=== PATIENT | male | born 1975 | race Caucasian/White ===

== ENCOUNTER → 2016-11-23 | Outpatient (CLI) | payer OTHER ==
[~2016-11-23] MED LIST: /WARF5TA PO; ACET65TA OR; BACT800T PO; CIPR500T4 PO; COUM1TAB17 PO; DIET; DOCU10CA PO; DRIS50002 PO; FOLLOW UP; IBUP600T26 PO; K-TA10TA2 PO; NICO14DI3 TD; No Historical Meds; OMEP10CASR PO; OMEP20CA3 PO; PERC5TAB6 PO; PERC5TAB8 PO; PERC7.5T8 PO; PERCOCET PO; POTA595T8 PO; POTA75TA2 PO; PRIL20CA9 PO; TYLE325T5 PO; VICO5TAB OR; VITA100072 PO; XARE15TA PO; [UNRECOGNIZED DRUG - OTHER] PO; [UNRECOGNIZED DRUG - REMARK]; [UNRECOGNIZED DRUG - REMARK]
--- NOTE | 2016-11-23 14:57 | REP ---
Clinical: Chronic venous thrombosis . Technique: Barber scale and color Doppler evaluation using linear high frequency transducer. Findings: Ultrasound examination of the right and left lower extremity deep venous structures from the common femoral vein to the popliteal vein demonstrates nonocclusive thrombus involving the left common femoral vein and bilateral proximal to distal superficial femoral veins and popliteal veins. Similar findings noted on prior examinations dated 09/17/2015 and 05/15/2014 suggest chronic deep venous thrombosis. Impression: Bilateral chronic nonocclusive venous thrombosis. Signed by Ozzy Aguilar MD 11/23/2016 02:48 P
== END ==
LOC: M RAD 14:04
PROVIDERS: ATTEND Nurse Practitioner Family
DX: I87.2 Venous insufficiency (chronic) (peripheral) (principal)

== ENCOUNTER → 2017-08-21 | Outpatient (REF) | payer MEDICARE, MEDICAID ==
[~2017-08-21] MED LIST changes: +FURO40TA2 PO; +IBUP-1022 PO; -IBUP600T26 PO; +PERC5TAB12 PO; -PERC5TAB6 PO; +SPIR25TA2 PO
== END ==
LOC: M LAB REF 17:34
PROVIDERS: ATTEND Internal Medicine Medical Oncology
DX: C18.9 Malignant neoplasm of colon, unspecified (principal)

== ENCOUNTER 2018-07-23 17:06 | Inpatient (IN) | payer MEDICARE, MEDICAID ==
[2018-07-23 18:11] LABS: HEMATOCRIT 25.5 % (42.0-52.0); MEAN CORPUSCULAR HEMOGLOBIN 36.6 pg (27.0-33.0); MEAN CORPUSCULAR HGB CONC 35.3 g/dl (32.0-36.5); MEAN CORPUSCULAR VOLUME 103.7 fl (80.0-96.0); RED BLOOD COUNT 2.46 10^6/uL (4.30-6.10); RED CELL DISTRIBUTION WIDTH 12.8 % (11.5-14.5); WHITE BLOOD COUNT 5.1 10^3/uL (4.0-10.0)
[2018-07-23 18:20] LABS: ADD MANUAL DIFFER YES; DIFF SLIDE NUMBER 379; PLATELET COUNT, AUTOMATED 25 10^3/uL (150-450); POS COUNT POS FLAG; POSITIVE MORPH POS FLAG
[2018-07-23] MEDS: NS 2,730 ML in APPROPRIATE DILUENT 1 EA IV (18:20)
[2018-07-23 18:22] LABS: ALBUMIN 2.4 GM/DL (3.2-5.2); ALBUMIN/GLOBULIN RATIO 0.49 (1.00-1.93); ALKALINE PHOSPHATASE 90 U/L (45-117); ALT/SGPT 64 U/L (12-78); ANION GAP 12 MEQ/L (8-16); AST/SGOT 70 U/L (7-37); BILIRUBIN,DIRECT 0.6 MG/DL (0.0-0.2); BILIRUBIN,TOTAL 1.1 MG/DL (0.2-1.0); BLOOD UREA NITROGEN 29 MG/DL (7-18); CALCIUM LEVEL 9.1 MG/DL (8.5-10.1); CARBON DIOXIDE LEVEL 19 MEQ/L (21-32); CHLORIDE LEVEL 93 MEQ/L (98-107); CREATININE FOR GFR 2.58 MG/DL (0.70-1.30); GLOMERULAR FILTRATION RATE 28.9 (>60); GLUCOSE, FASTING 102 MG/DL (70-100); IMMATURE PLATELET FRACTION % 5.2 % (0.0-10.9); SODIUM LEVEL 124 MEQ/L (136-145); TOTAL PROTEIN 7.3 GM/DL (6.4-8.2)
[2018-07-23 18:29] LABS: LACTIC ACID SEPSIS PROTOCOL 2.7 MMOL/L (0.4-2.0)
[2018-07-23] MEDS: MORPHINE 4 MG/ML 1ML VIAL/SYRINGE (J2270) IV (18:29)
[2018-07-23 18:30] LABS: CPK CREATINE PHOSPHOKINASE 165 U/L (39-308); LIPASE 74 U/L (73-393); MB/CK RELATIVE INDEX 0.91 (< OR =4); TROPONIN I < 0.02 NG/ML (< 0.10)
[2018-07-23] MEDS: ONDANSETRON 4MG/2ML VIAL (J2405) IV (18:30)
[2018-07-23 18:49] LABS: KETONE, URINE AUTO RFX NEGATIVE (NEGATIVE); MUCUS, URINE RFX SMALL (NEGATIVE); NITRITE, URINE AUTO RFX NEGATIVE (NEGATIVE); RBC, URINE AUTO RFX 30 /HPF (0-3); SPECIFIC GRAVITY UR AUTO RFX 1.009 (1.002-1.035); SQUAM EPITHELIAL CELL UR AURFX 0 /HPF (0-6)
[2018-07-23 18:52] LABS: INR 1.41; PROTHROMBIN TIME 17.5 SECONDS (12.1-14.4)
[2018-07-23 18:53] LABS: PARTIAL THROMBOPLASTIN TIME 33.2 SECONDS (25.4-37.6)
[2018-07-23 18:54] LABS: BANDS 10 % (< 11); LYMPHOCYTES 19 % (16-52); MONOCYTES 7 % (0-8); NEUTROPHILS 64 % (35-75)
[2018-07-23 18:55] LABS: PLATELET ESTIMATE MARKED DECREASE (NORMAL)
[2018-07-23 18:56] LABS: TOXIC VACUOLATION 1+
[2018-07-23 19:14] LABS: LEUKOCYTE ESTERASE UR AUTO RFX 3+ (NEGATIVE); WBC, URINE AUTO RFX TNTC /HPF (0-3)
[2018-07-23] MEDS: cefTRIAXone SOD 2 GM in D5W MINI-BAG PLUS 50 ML IV (19:53)
[2018-07-23] MEDS ORDERED: ONDANSETRON 4 MG TAB (S0181) PO (21:00)
[2018-07-23] MEDS: SODIUM CHLORIDE 0.9% 1000ML IV (21:00)
[2018-07-23] MEDS: VANCOMYCIN HCL 1,000 MG, VIAL MATE ADAPTER 1 EACH in D5W 250 ML IV (22:29)
[2018-07-23] MEDS: NS 1,000 ML IV (22:31)
[2018-07-23 22:39] LABS: PLTBLUE- EDTA FREE CALC 23 K/mm3 (172-450)
[2018-07-23 22:55] LABS: PLTBLUE- EDTA FREE MACHINE 21 10^3/uL (172-450)
[2018-07-24] MEDS: VANCOMYCIN HCL 1,000 MG, VIAL MATE ADAPTER 1 EACH in NS 250 ML IV
[2018-07-24] MEDS: NS 1,000 ML IV ×2 (05:17→16:06)
[2018-07-24] MEDS: MORPHINE 4 MG/ML 1ML VIAL/SYRINGE (J2270) IV (05:46)
[2018-07-24] MEDS: PIPERACILLIN/TAZOBACTAM SOD 2.25 GM in D5W MINI-BAG PLUS 50 ML IV ×2 (06:00→17:38)
[2018-07-24 07:27] LABS: HEMATOCRIT 20.8 % (42.0-52.0); HEMOGLOBIN 7.3 g/dl (13.5-17.5); MEAN CORPUSCULAR HEMOGLOBIN 36.7 pg (27.0-33.0); MEAN CORPUSCULAR HGB CONC 35.1 g/dl (32.0-36.5); MEAN CORPUSCULAR VOLUME 104.5 fl (80.0-96.0); RED BLOOD COUNT 1.99 10^6/uL (4.30-6.10)
[2018-07-24 07:50] LABS: ADD MANUAL DIFFER YES; DIFF SLIDE NUMBER 91; PLATELET COUNT, AUTOMATED 19 10^3/uL (150-450); POS COUNT POS FLAG; POSITIVE MORPH POS FLAG
[2018-07-24 07:54] LABS: ANION GAP 11 MEQ/L (8-16); BLOOD UREA NITROGEN 31 MG/DL (7-18); CALCIUM LEVEL 7.7 MG/DL (8.5-10.1); CARBON DIOXIDE LEVEL 18 MEQ/L (21-32); CHLORIDE LEVEL 101 MEQ/L (98-107); CREATININE FOR GFR 2.46 MG/DL (0.70-1.30); GLOMERULAR FILTRATION RATE 30.6 (>60); GLUCOSE, FASTING 115 MG/DL (70-100); POTASSIUM SERUM 3.8 MEQ/L (3.5-5.1); SODIUM LEVEL 130 MEQ/L (136-145)
[2018-07-24 08:02] LABS: ANISOCYTOSIS 1+; BASOPHILS 1 % (0-4); LYMPHOCYTES 25 % (16-52); MONOCYTES 2 % (0-8); NEUTROPHILS 72 % (35-75); PLATELET ESTIMATE MARKED DECREASE (NORMAL)
[2018-07-24] MEDS ORDERED: SPIRONOLACTONE 12.5MG PER 1/2 TABLET PO (09:00)
[2018-07-24] MEDS: OMEPRAZOLE 20 MG CAP PO (09:17)
[2018-07-24] MEDS: ACETAMINOPHEN TAB 650MG DOSE (2X325MG) PO (09:17)
[2018-07-24] MEDS: NICOTINE 21MG/24HR 1 EA TRANSDERMAL TD (09:17)
[2018-07-24] MEDS ORDERED: PERCOCET 5MG/325MG TAB PO (10:45)
[2018-07-24] MEDS: PERCOCET 5MG/325MG TAB PO (10:52)
[2018-07-24 10:57] LABS: REASON FOR REVIEW WBC/LEUKEMIA/BLAST; SLIDE REVIEW Report; SOURCE PERIPHERAL SMEAR
[2018-07-24 13:37] LABS: RETIC HEMOGLOBIN EQUIVALENT 38.2 pg (24-36); RETICULOCYTE # 8.9 10^9/L (17-77); RETICULOCYTE % 0.4 % (0.5-1.5)
[2018-07-24 13:39] LABS: EOS % 0.5 % (0.0-3.0); HEMATOCRIT 21.8 % (42.0-52.0); HEMOGLOBIN 7.7 g/dl (13.5-17.5); LYMPH # 0.5 10^3/uL (1.5-4.5); LYMPH % 14.4 % (24.0-44.0); MEAN CORPUSCULAR HEMOGLOBIN 37.2 pg (27.0-33.0); MEAN CORPUSCULAR HGB CONC 35.3 g/dl (32.0-36.5); MEAN CORPUSCULAR VOLUME 105.3 fl (80.0-96.0); MONO # 0.4 10^3/uL (0.0-0.8); MONO % 9.4 % (0.0-5.0); NEUTROPHILS # 2.6 10^3/uL (1.8-7.7); NEUTROPHILS % 68.7 % (36.0-66.0); RED BLOOD COUNT 2.07 10^6/uL (4.30-6.10); RED CELL DISTRIBUTION WIDTH 13.1 % (11.5-14.5); WHITE BLOOD COUNT 3.7 10^3/uL (4.0-10.0)
[2018-07-24 13:49] LABS: PLATELET COUNT, AUTOMATED 17 10^3/uL (150-450)
[2018-07-24 13:50] LABS: POS COUNT POS FLAG; POSITIVE MORPH POS FLAG
[2018-07-24] MEDS: NS 500 ML IV (15:45)
[2018-07-24 16:18] LABS: IRON (FE) 42 UG/DL (65-175); PERCENT SATURATION 33.3 % (19.7-50.0); TOTAL IRON BINDING CAPACITY 126 UG/DL (250-450)
[2018-07-24 16:19] LABS: FERRITIN 1875 NG/ML (26-388)
[2018-07-24 16:21] LABS: LDH LACTATE DEHYDROGENASE 244 U/L (87-241)
[2018-07-24 16:22] LABS: FIBRINOGEN 652 MG/DL (221-452)
[2018-07-24 17:06] LABS: BLOOD UREA NITROGEN 34 MG/DL (7-18); CARBON DIOXIDE LEVEL 17 MEQ/L (21-32); CHLORIDE LEVEL 106 MEQ/L (98-107); CREATININE FOR GFR 2.63 MG/DL (0.70-1.30); GLOMERULAR FILTRATION RATE 28.3 (>60); GLUCOSE, FASTING 96 MG/DL (70-100); SODIUM LEVEL 136 MEQ/L (136-145)
[2018-07-24 17:07] LABS: ANION GAP 13 MEQ/L (8-16); CALCIUM LEVEL 7.8 MG/DL (8.5-10.1)
[2018-07-24 17:07] LABS: LDH LACTATE DEHYDROGENASE 246 U/L (87-241)
[2018-07-25 08:07] LABS: HAPTOGLOBIN 432 mg/dL (34-200)
[2018-07-25] MEDS ORDERED: INFLUENZA QUADRIVALENT PF VACCINE 0.5ML SYRINGE (90686) IM (09:00)
[2018-07-25 09:29] LABS: FOLATE 3.7 NG/ML (>5.4)
[2018-07-27 00:08] LABS: HOMOCYST(E)INE SERUM 20.6 umol/L (0.0-15.0)
== END 2018-07-24 18:06 | disposition short-term general hospital (02) | DRG 871 ==
LOC: M ICU 07-24 15:55 → M ED 17:06 → M ED INP 21:25
DX: A41.9 Sepsis, unspecified organism (principal); M31.1 Thrombotic microangiopathy; N17.9 Acute kidney failure, unspecified; N13.30 Unspecified hydronephrosis; N39.0 Urinary tract infection, site not specified; D68.2 Hereditary deficiency of other clotting factors; I12.9 Hypertensive chronic kidney disease with stage 1 through stage 4 chronic kidney disease, or unspecified chronic kidney disease; D69.6 Thrombocytopenia, unspecified; R65.20 Severe sepsis without septic shock; N18.3 Chronic kidney disease, stage 3 (moderate); Z86.718 Personal history of other venous thrombosis and embolism; L02.224 Furuncle of groin; Z79.01 Long term (current) use of anticoagulants; Z85.048 Personal history of other malignant neoplasm of rectum, rectosigmoid junction, and anus; H54.62 Unqualified visual loss, left eye, normal vision right eye; Z93.3 Colostomy status; Z87.442 Personal history of urinary calculi; Z79.899 Other long term (current) drug therapy; F17.210 Nicotine dependence, cigarettes, uncomplicated

== ENCOUNTER 2018-08-21 11:37 | Outpatient (CLI) | payer MEDICARE, MEDICAID ==
[2018-08-21] MEDS: ACETAMINOPHEN TAB 650MG DOSE (2X325MG) PO (13:09)
[2018-08-21] MEDS: diphenhydrAMINE 25 MG CAP PO (13:09)
[2018-08-21] MEDS ORDERED: ONDANSETRON 4 MG TAB (S0181) PO (13:15)
== END 2018-08-21 19:36 | disposition home or self-care (01) ==
LOC: M OPCLI4PV 11:37 → M MSPAV 12:05 → M OPCLI4PV 19:36
DX: D69.6 Thrombocytopenia, unspecified (principal)
CPT/HCPCS: 36430

== ENCOUNTER 2018-08-28 17:02 | Inpatient (IN) | payer MEDICARE, MEDICAID ==
[2018-08-28] MEDS: ONDANSETRON 4MG/2ML VIAL (J2405) IV (18:34)
[2018-08-28] MEDS: MORPHINE 2 MG/ML 1ML SYRINGE (J2270) IV ×2 (18:34→22:00)
[2018-08-28 18:52] LABS: HEMATOCRIT 25.6 % (42.0-52.0); HEMOGLOBIN 8.6 g/dl (13.5-17.5); MEAN CORPUSCULAR HEMOGLOBIN 34.1 pg (27.0-33.0); MEAN CORPUSCULAR HGB CONC 33.6 g/dl (32.0-36.5); MEAN CORPUSCULAR VOLUME 101.6 fl (80.0-96.0); RED BLOOD COUNT 2.52 10^6/uL (4.30-6.10); RED CELL DISTRIBUTION WIDTH 17.8 % (11.5-14.5); WHITE BLOOD COUNT 2.3 10^3/uL (4.0-10.0)
[2018-08-28 18:55] LABS: ADD MANUAL DIFFER YES; DIFF SLIDE NUMBER 377; PLATELET COUNT, AUTOMATED 13 10^3/uL (150-450); POS COUNT POS FLAG; POSITIVE DIFF POS FLAG; POSITIVE MORPH POS FLAG
[2018-08-28 18:57] LABS: IMMATURE PLATELET FRACTION % 11.3 % (0.0-10.9)
[2018-08-28 19:02] LABS: LACTIC ACID SEPSIS PROTOCOL 1.3 MMOL/L (0.4-2.0)
[2018-08-28 19:10] LABS: ALBUMIN 2.8 GM/DL (3.2-5.2); ALBUMIN/GLOBULIN RATIO 0.65 (1.00-1.93); ALKALINE PHOSPHATASE 131 U/L (45-117); ALT/SGPT 15 U/L (12-78); AMYLASE 38 U/L (25-115); ANION GAP 10 MEQ/L (8-16); AST/SGOT 9 U/L (7-37); BILIRUBIN,DIRECT 0.2 MG/DL (0.0-0.2); BILIRUBIN,TOTAL 0.4 MG/DL (0.2-1.0); BLOOD UREA NITROGEN 19 MG/DL (7-18); CALCIUM LEVEL 8.4 MG/DL (8.5-10.1); CARBON DIOXIDE LEVEL 22 MEQ/L (21-32); CHLORIDE LEVEL 108 MEQ/L (98-107); CPK CREATINE PHOSPHOKINASE 41 U/L (39-308); CREATININE FOR GFR 1.83 MG/DL (0.70-1.30); GLUCOSE, FASTING 87 MG/DL (70-100); LIPASE 63 U/L (73-393); MB/CK RELATIVE INDEX 2.68 (< OR =4); POTASSIUM SERUM 3.4 MEQ/L (3.5-5.1); SODIUM LEVEL 140 MEQ/L (136-145); TOTAL PROTEIN 7.1 GM/DL (6.4-8.2); TROPONIN I < 0.02 NG/ML (< 0.10)
[2018-08-28 19:23] LABS: ATYPICAL LYMPH 24 % (0-5); BANDS 8 % (< 11); EOSINOPHILS 1 % (0-5); LYMPHOCYTES 34 % (16-52); METAMYELOCYTES 3 % (0-0); MONOCYTES 15 % (0-8); NEUTROPHILS 15 % (35-75); PLATELET ESTIMATE MARKED DECREASE (NORMAL)
[2018-08-28 19:26] LABS: SMUDGE CELLS 1+
[2018-08-28 19:33] LABS: KETONE, URINE AUTO RFX NEGATIVE (NEGATIVE); LEUKOCYTE ESTERASE UR AUTO RFX NEGATIVE (NEGATIVE); NITRITE, URINE AUTO RFX NEGATIVE (NEGATIVE); RBC, URINE AUTO RFX 7 /HPF (0-3); SPECIFIC GRAVITY UR AUTO RFX 1.012 (1.002-1.035); SQUAM EPITHELIAL CELL UR AURFX 0 /HPF (0-6); WBC, URINE AUTO RFX 3 /HPF (0-3)
[2018-08-28] MEDS: cefTAZidime 1 GM in D5W MINI-BAG PLUS 50 ML IV (20:00)
[2018-08-28 20:24] LABS: IMMEDIATE SPIN CROSSMATCH 1
[2018-08-28 20:33] LABS: INR 0.99; PROTHROMBIN TIME 13.2 SECONDS (12.1-14.4)
[2018-08-28 20:34] LABS: PARTIAL THROMBOPLASTIN TIME 33.2 SECONDS (25.4-37.6)
[2018-08-28] MEDS: POTASSIUM CHLORIDE 10 MEQ SR TABLET PO (21:45)
[2018-08-28 21:55] LABS: FIBRINOGEN 517 MG/DL (221-452)
[2018-08-28 21:58] LABS: C REACTIVE PROTEIN QUANTITATIV 8.99 MG/DL (0.00-0.30); LDH LACTATE DEHYDROGENASE 207 U/L (87-241); MAGNESIUM LEVEL 1.3 MG/DL (1.8-2.4)
[2018-08-28 21:59] LABS: REASON FOR REVIEW WBC/LEUKEMIA/BLAST; SLIDE REVIEW Report; SOURCE PERIPHERAL SMEAR
[2018-08-28 22:22] LABS: ERYTHROCYTE SEDIMENTATION RATE > 140 mm/hr (0-15)
[2018-08-28 22:55] LABS: CPK CREATINE PHOSPHOKINASE 30 U/L (39-308); MB/CK RELATIVE INDEX 3.67 (< OR =4); TROPONIN I < 0.02 NG/ML (< 0.10)
[2018-08-29] MEDS: NICOTINE 21MG/24HR 1 EA TRANSDERMAL TD ×2 (00:52→20:19)
[2018-08-29] MEDS: ACETAMINOPHEN TAB 650MG DOSE (2X325MG) PO (00:52)
[2018-08-29] MEDS: MAG SULF 1GM/100ML (MAG RUN) 1 GM in APPROPRIATE DILUENT 1 EA IV ×2 (00:53→02:02)
[2018-08-29] MEDS: MORPHINE 4 MG/ML 1ML VIAL/SYRINGE (J2270) IV ×8 (00:53→22:43)
[2018-08-29] MEDS ORDERED: AMPICILLIN SOD/SULBACTAM SOD 1.5 GM in D5W MINI-BAG PLUS 50 ML IV (02:00)
[2018-08-29] MEDS: AMPICILLIN SOD/SULBACTAM SOD 1.5 GM in D5W MINI-BAG PLUS 50 ML IV ×2 (03:00→08:00)
[2018-08-29] MEDS: PERCOCET 5MG/325MG TAB PO ×4 (04:45→18:26)
[2018-08-29 05:09] LABS: HEMATOCRIT 20.9 % (42.0-52.0); HEMOGLOBIN 7.2 g/dl (13.5-17.5); MEAN CORPUSCULAR HEMOGLOBIN 33.6 pg (27.0-33.0); MEAN CORPUSCULAR HGB CONC 34.4 g/dl (32.0-36.5); MEAN CORPUSCULAR VOLUME 97.7 fl (80.0-96.0); RED BLOOD COUNT 2.14 10^6/uL (4.30-6.10); RED CELL DISTRIBUTION WIDTH 17.1 % (11.5-14.5)
[2018-08-29 05:10] LABS: PLATELET COUNT, AUTOMATED 25 10^3/uL (150-450); WHITE BLOOD COUNT 1.3 10^3/uL (4.0-10.0)
[2018-08-29 05:11] LABS: ADD MANUAL DIFFER YES; DIFF SLIDE NUMBER 79; POS COUNT POS FLAG; POSITIVE DIFF POS FLAG; POSITIVE MORPH POS FLAG
[2018-08-29 05:41] LABS: ALBUMIN 2.4 GM/DL (3.2-5.2); ALBUMIN/GLOBULIN RATIO 0.65 (1.00-1.93); ALKALINE PHOSPHATASE 110 U/L (45-117); ALT/SGPT 10 U/L (12-78); ANION GAP 8 MEQ/L (8-16); AST/SGOT 5 U/L (7-37); BILIRUBIN,TOTAL 0.5 MG/DL (0.2-1.0); BLOOD UREA NITROGEN 16 MG/DL (7-18); CALCIUM LEVEL 8.2 MG/DL (8.5-10.1); CARBON DIOXIDE LEVEL 22 MEQ/L (21-32); CHLORIDE LEVEL 109 MEQ/L (98-107); CK-MB VALUE MASS < 1.0 NG/ML (<3.6); CPK CREATINE PHOSPHOKINASE 26 U/L (39-308); CREATININE FOR GFR 1.76 MG/DL (0.70-1.30); GLUCOSE, FASTING 105 MG/DL (70-100); MAGNESIUM LEVEL 1.8 MG/DL (1.8-2.4); MB/CK RELATIVE INDEX 3.85 (< OR =4); POTASSIUM SERUM 3.7 MEQ/L (3.5-5.1); SODIUM LEVEL 139 MEQ/L (136-145); TOTAL PROTEIN 6.1 GM/DL (6.4-8.2); TROPONIN I < 0.02 NG/ML (< 0.10)
[2018-08-29 06:18] LABS: ATYPICAL LYMPH 1 % (0-5); LYMPHOCYTES 73 % (16-52); METAMYELOCYTES 3 % (0-0); MONOCYTES 4 % (0-8); MYELOCYTES 2 % (0-0); NEUTROPHILS 17 % (35-75)
[2018-08-29 06:22] LABS: ANISOCYTOSIS 1+; PLATELET ESTIMATE MARKED DECREASE (NORMAL)
[2018-08-29 06:24] LABS: TEAR DROP CELLS 1+
[2018-08-29] MEDS ORDERED: PANTOPRAZOLE 40MG TAB (PROTONIX) PO (09:00)
[2018-08-29] MEDS: OMEPRAZOLE 20 MG CAP PO (09:00)
[2018-08-29] MEDS: SPIRONOLACTONE 12.5MG PER 1/2 TABLET PO (09:00)
[2018-08-29] MEDS: SENOKOT S TAB PO ×2 (09:00→20:19)
[2018-08-29] MEDS: VANCOMYCIN HCL 1,000 MG, VIAL MATE ADAPTER 1 EACH in D5W 250 ML IV ×2 (12:04→18:26)
[2018-08-29] MEDS: CEFEPIME HCL 2 GM in D5W MINI-BAG PLUS 50 ML IV (13:28)
[2018-08-29] MEDS: ONDANSETRON 4MG/2ML VIAL (J2405) IV (13:55)
[2018-08-29] MEDS: TAMSULOSIN 0.4 MG CAP PO (13:55)
[2018-08-29 14:27] LABS: IMMEDIATE SPIN CROSSMATCH 1 2
[2018-08-29 17:51] LABS: HEMATOCRIT 29.1 % (42.0-52.0); HEMOGLOBIN 9.9 g/dl (13.5-17.5); MEAN CORPUSCULAR VOLUME 94.2 fl (80.0-96.0); RED BLOOD COUNT 3.09 10^6/uL (4.30-6.10); RED CELL DISTRIBUTION WIDTH 17.6 % (11.5-14.5); WHITE BLOOD COUNT 1.8 10^3/uL (4.0-10.0)
[2018-08-29 17:54] LABS: PLATELET COUNT, AUTOMATED 23 10^3/uL (150-450); POS COUNT POS FLAG
[2018-08-29] MEDS: diphenhydrAMINE 25 MG CAP PO (18:25)
[2018-08-29] MEDS: FILGRASTIM 300 MCG/0.5 ML SYRINGE (J1442 PER 1MCG) SC (18:26)
[2018-08-30] MEDS: VANCOMYCIN HCL 1,000 MG, VIAL MATE ADAPTER 1 EACH in D5W 250 ML IV (00:32)
[2018-08-30] MEDS: PERCOCET 5MG/325MG TAB PO ×6 (00:33→23:07)
[2018-08-30] MEDS: MORPHINE 4 MG/ML 1ML VIAL/SYRINGE (J2270) IV ×7 (01:15→20:44)
[2018-08-30] MEDS: CEFEPIME HCL 2 GM in D5W MINI-BAG PLUS 50 ML IV ×2 (02:32→14:51)
[2018-08-30 05:29] LABS: HEMATOCRIT 28.5 % (42.0-52.0); HEMOGLOBIN 9.7 g/dl (13.5-17.5); MEAN CORPUSCULAR HEMOGLOBIN 32.1 pg (27.0-33.0); MEAN CORPUSCULAR VOLUME 94.4 fl (80.0-96.0); RED BLOOD COUNT 3.02 10^6/uL (4.30-6.10); WHITE BLOOD COUNT 2.7 10^3/uL (4.0-10.0)
[2018-08-30 05:32] LABS: ADD MANUAL DIFFER YES; PLATELET COUNT, AUTOMATED 18 10^3/uL (150-450); POS COUNT POS FLAG; POSITIVE DIFF POS FLAG; POSITIVE MORPH POS FLAG
[2018-08-30 05:33] LABS: DIFF SLIDE NUMBER 43
[2018-08-30 05:50] LABS: ATYPICAL LYMPH 3 % (0-5); BANDS 5 % (< 11); LYMPHOCYTES 70 % (16-52); METAMYELOCYTES 3 % (0-0); MONOCYTES 1 % (0-8); MYELOCYTES 2 % (0-0); NEUTROPHILS 16 % (35-75); TEAR DROP CELLS 1+
[2018-08-30 05:51] LABS: ANISOCYTOSIS 2+; PLATELET ESTIMATE MARKED DECREASE (NORMAL)
[2018-08-30 05:57] LABS: ALBUMIN 2.1 GM/DL (3.2-5.2); ALBUMIN/GLOBULIN RATIO 0.49 (1.00-1.93); ALKALINE PHOSPHATASE 108 U/L (45-117); ALT/SGPT 10 U/L (12-78); ANION GAP 8 MEQ/L (8-16); AST/SGOT 6 U/L (7-37); BILIRUBIN,TOTAL 0.5 MG/DL (0.2-1.0); BLOOD UREA NITROGEN 16 MG/DL (7-18); CALCIUM LEVEL 8.2 MG/DL (8.5-10.1); CARBON DIOXIDE LEVEL 23 MEQ/L (21-32); CHLORIDE LEVEL 106 MEQ/L (98-107); CREATININE FOR GFR 1.67 MG/DL (0.70-1.30); GLOMERULAR FILTRATION RATE 47.8 (>60); GLUCOSE, FASTING 129 MG/DL (70-100); MAGNESIUM LEVEL 1.6 MG/DL (1.8-2.4); POTASSIUM SERUM 3.7 MEQ/L (3.5-5.1); SODIUM LEVEL 137 MEQ/L (136-145); TOTAL PROTEIN 6.4 GM/DL (6.4-8.2)
[2018-08-30] MEDS: MAG SULF 1GM/100ML (MAG RUN) 1 GM in APPROPRIATE DILUENT 1 EA IV (07:35)
[2018-08-30 08:06] LABS: HAPTOGLOBIN 259 mg/dL (34-200)
[2018-08-30 09:42] LABS: IMMEDIATE SPIN CROSSMATCH 1
[2018-08-30] MEDS: SENOKOT S TAB PO ×2 (09:48→20:38)
[2018-08-30] MEDS: TAMSULOSIN 0.4 MG CAP PO (09:48)
[2018-08-30] MEDS: OMEPRAZOLE 20 MG CAP PO (09:48)
[2018-08-30] MEDS: SPIRONOLACTONE 12.5MG PER 1/2 TABLET PO (09:48)
[2018-08-30] MEDS: FILGRASTIM 300 MCG/0.5 ML SYRINGE (J1442 PER 1MCG) SC (14:13)
[2018-08-30] MEDS: PIPERACILLIN/TAZOBACTAM SOD 3.375 GM in D5W MINI-BAG PLUS 50 ML IV ×2 (17:45→23:08)
[2018-08-30] MEDS: NICOTINE 21MG/24HR 1 EA TRANSDERMAL TD (20:38)
[2018-08-30] MEDS: VANCOMYCIN HCL 750 MG, VIAL MATE ADAPTER 1 EACH in D5W 250 ML IV (20:38)
[2018-08-31] MEDS: MORPHINE 4 MG/ML 1ML VIAL/SYRINGE (J2270) IV ×3 (01:57→17:13)
[2018-08-31] MEDS: PERCOCET 5MG/325MG TAB PO ×5 (05:27→23:54)
[2018-08-31] MEDS: PIPERACILLIN/TAZOBACTAM SOD 3.375 GM in D5W MINI-BAG PLUS 50 ML IV ×4 (05:27→22:44)
[2018-08-31 06:13] LABS: HEMATOCRIT 27.6 % (42.0-52.0); HEMOGLOBIN 9.3 g/dl (13.5-17.5); MEAN CORPUSCULAR HEMOGLOBIN 31.5 pg (27.0-33.0); MEAN CORPUSCULAR HGB CONC 33.7 g/dl (32.0-36.5); MEAN CORPUSCULAR VOLUME 93.6 fl (80.0-96.0); RED BLOOD COUNT 2.95 10^6/uL (4.30-6.10); RED CELL DISTRIBUTION WIDTH 18.1 % (11.5-14.5); WHITE BLOOD COUNT 3.5 10^3/uL (4.0-10.0)
[2018-08-31 06:15] LABS: PLATELET COUNT, AUTOMATED 26 10^3/uL (150-450); POS COUNT POS FLAG; POSITIVE MORPH POS FLAG
[2018-08-31 06:16] LABS: ADD MANUAL DIFFER YES; DIFF SLIDE NUMBER 37
[2018-08-31 06:37] LABS: ALBUMIN 2.1 GM/DL (3.2-5.2); ALBUMIN/GLOBULIN RATIO 0.46 (1.00-1.93); ALKALINE PHOSPHATASE 118 U/L (45-117); ALT/SGPT 10 U/L (12-78); ANION GAP 7 MEQ/L (8-16); AST/SGOT 8 U/L (7-37); BILIRUBIN,TOTAL 0.4 MG/DL (0.2-1.0); BLOOD UREA NITROGEN 20 MG/DL (7-18); CALCIUM LEVEL 8.7 MG/DL (8.5-10.1); CARBON DIOXIDE LEVEL 26 MEQ/L (21-32); CHLORIDE LEVEL 104 MEQ/L (98-107); CREATININE FOR GFR 1.73 MG/DL (0.70-1.30); GLOMERULAR FILTRATION RATE 45.9 (>60); GLUCOSE, FASTING 100 MG/DL (70-100); MAGNESIUM LEVEL 1.9 MG/DL (1.8-2.4); POTASSIUM SERUM 3.8 MEQ/L (3.5-5.1); SODIUM LEVEL 137 MEQ/L (136-145); TOTAL PROTEIN 6.7 GM/DL (6.4-8.2)
[2018-08-31] MEDS: ONDANSETRON 4MG/2ML VIAL (J2405) IV (06:38)
[2018-08-31 06:48] LABS: ATYPICAL LYMPH 2 % (0-5); BANDS 2 % (< 11); BASOPHILS 2 % (0-4); EOSINOPHILS 5 % (0-5); LYMPHOCYTES 57 % (16-52); METAMYELOCYTES 3 % (0-0); MONOCYTES 3 % (0-8); MYELOCYTES 2 % (0-0); NEUTROPHILS 24 % (35-75)
[2018-08-31 06:52] LABS: ANISOCYTOSIS 2+; PLATELET ESTIMATE MARKED DECREASE (NORMAL)
[2018-08-31] MEDS: OMEPRAZOLE 20 MG CAP PO (10:26)
[2018-08-31] MEDS: SENOKOT S TAB PO ×2 (10:27→20:12)
[2018-08-31] MEDS: TAMSULOSIN 0.4 MG CAP PO (10:41)
[2018-08-31] MEDS: SPIRONOLACTONE 12.5MG PER 1/2 TABLET PO (10:41)
[2018-08-31] MEDS: FILGRASTIM 300 MCG/0.5 ML SYRINGE (J1442 PER 1MCG) SC (11:17)
[2018-08-31] MEDS: NICOTINE 21MG/24HR 1 EA TRANSDERMAL TD (20:12)
[2018-09-01] MEDS: PIPERACILLIN/TAZOBACTAM SOD 3.375 GM in D5W MINI-BAG PLUS 50 ML IV ×3 (05:13→17:00)
[2018-09-01] MEDS: PERCOCET 5MG/325MG TAB PO ×4 (05:13→17:33)
[2018-09-01 06:18] LABS: HEMATOCRIT 28.1 % (42.0-52.0); HEMOGLOBIN 9.4 g/dl (13.5-17.5); MEAN CORPUSCULAR HEMOGLOBIN 31.9 pg (27.0-33.0); MEAN CORPUSCULAR HGB CONC 33.5 g/dl (32.0-36.5); MEAN CORPUSCULAR VOLUME 95.3 fl (80.0-96.0); RED BLOOD COUNT 2.95 10^6/uL (4.30-6.10); RED CELL DISTRIBUTION WIDTH 17.7 % (11.5-14.5); WHITE BLOOD COUNT 3.4 10^3/uL (4.0-10.0)
[2018-09-01 06:37] LABS: ALBUMIN 2.2 GM/DL (3.2-5.2); ALBUMIN/GLOBULIN RATIO 0.47 (1.00-1.93); ALKALINE PHOSPHATASE 159 U/L (45-117); ALT/SGPT 10 U/L (12-78); ANION GAP 7 MEQ/L (8-16); AST/SGOT 7 U/L (7-37); BILIRUBIN,TOTAL 0.4 MG/DL (0.2-1.0); BLOOD UREA NITROGEN 21 MG/DL (7-18); CALCIUM LEVEL 8.4 MG/DL (8.5-10.1); CARBON DIOXIDE LEVEL 26 MEQ/L (21-32); CHLORIDE LEVEL 101 MEQ/L (98-107); CREATININE FOR GFR 1.97 MG/DL (0.70-1.30); GLOMERULAR FILTRATION RATE 39.5 (>60); GLUCOSE, FASTING 127 MG/DL (70-100); POTASSIUM SERUM 3.7 MEQ/L (3.5-5.1); SODIUM LEVEL 134 MEQ/L (136-145); TOTAL PROTEIN 6.9 GM/DL (6.4-8.2)
[2018-09-01 06:49] LABS: PLATELET COUNT, AUTOMATED 18 10^3/uL (150-450)
[2018-09-01 06:50] LABS: ADD MANUAL DIFFER YES; DIFF SLIDE NUMBER 16; POS COUNT POS FLAG; POSITIVE DIFF POS FLAG; POSITIVE MORPH POS FLAG
[2018-09-01 07:06] LABS: ATYPICAL LYMPH 19 % (0-5); BANDS 7 % (< 11); BASOPHILS 2 % (0-4); BLAST CELLS 1 % (0-0); EOSINOPHILS 1 % (0-5); LYMPHOCYTES 32 % (16-52); METAMYELOCYTES 3 % (0-0); MONOCYTES 7 % (0-8); MYELOCYTES 6 % (0-0); NEUTROPHILS 22 % (35-75); PLATELET ESTIMATE MARKED DECREASE (NORMAL)
[2018-09-01 07:07] LABS: ANISOCYTOSIS 1+; POIKILOCYTOSIS 1+
[2018-09-01] MEDS: SENOKOT S TAB PO (09:00)
[2018-09-01] MEDS: OMEPRAZOLE 20 MG CAP PO (09:28)
[2018-09-01] MEDS: SPIRONOLACTONE 12.5MG PER 1/2 TABLET PO (09:28)
[2018-09-01] MEDS: TAMSULOSIN 0.4 MG CAP PO (09:28)
[2018-09-01 12:33] LABS: IMMEDIATE SPIN CROSSMATCH 1
[2018-09-01] MEDS: ONDANSETRON 4MG/2ML VIAL (J2405) IV (13:39)
[2018-09-01 15:45] LABS: HEMATOCRIT 28.4 % (42.0-52.0); HEMOGLOBIN 9.5 g/dl (13.5-17.5); MEAN CORPUSCULAR HEMOGLOBIN 31.9 pg (27.0-33.0); MEAN CORPUSCULAR HGB CONC 33.5 g/dl (32.0-36.5); MEAN CORPUSCULAR VOLUME 95.3 fl (80.0-96.0); RED BLOOD COUNT 2.98 10^6/uL (4.30-6.10); RED CELL DISTRIBUTION WIDTH 17.6 % (11.5-14.5); WHITE BLOOD COUNT 3.5 10^3/uL (4.0-10.0)
[2018-09-01 15:49] LABS: POS COUNT POS FLAG; POSITIVE DIFF POS FLAG; POSITIVE MORPH POS FLAG
[2018-09-01 15:50] LABS: ADD MANUAL DIFFER YES; DIFF SLIDE NUMBER 150; IMMATURE PLATELET FRACTION % 2.3 % (0.0-10.9); PLATELET COUNT, AUTOMATED 32 10^3/uL (150-450)
[2018-09-01 17:11] LABS: ANISOCYTOSIS 1+; ATYPICAL LYMPH 12 % (0-5); BANDS 3 % (< 11); BASOPHILS 3 % (0-4); BLAST CELLS 3 % (0-0); EOSINOPHILS 1 % (0-5); LYMPHOCYTES 49 % (16-52); METAMYELOCYTES 2 % (0-0); MONOCYTES 7 % (0-8); MYELOCYTES 9 % (0-0); NEUTROPHILS 11 % (35-75); PLATELET ESTIMATE MARKED DECREASE (NORMAL)
== END 2018-09-01 19:24 | disposition home or self-care (01) | DRG 808 ==
LOC: M ICU 08-29 11:23 → M MSPAV 08-30 15:36 → M ED 17:02 → M ED INP 21:38
PROC: 30233R1 Transfusion of Nonautologous Platelets into Peripheral Vein, Percutaneous Approach (ICD-10-PCS; 2018-08-28)
PROC: 30233N1 Transfusion of Nonautologous Red Blood Cells into Peripheral Vein, Percutaneous Approach (ICD-10-PCS; principal; 2018-08-29)
DX: D70.9 Neutropenia, unspecified (principal); D61.89 Other specified aplastic anemias and other bone marrow failure syndromes; C92.00 Acute myeloblastic leukemia, not having achieved remission; N13.30 Unspecified hydronephrosis; D61.818 Other pancytopenia; N49.2 Inflammatory disorders of scrotum; K21.9 Gastro-esophageal reflux disease without esophagitis; F17.200 Nicotine dependence, unspecified, uncomplicated; D69.6 Thrombocytopenia, unspecified; I12.9 Hypertensive chronic kidney disease with stage 1 through stage 4 chronic kidney disease, or unspecified chronic kidney disease; Z86.718 Personal history of other venous thrombosis and embolism; Z79.899 Other long term (current) drug therapy; Z91.018 Allergy to other foods; E87.6 Hypokalemia; E83.42 Hypomagnesemia; R07.9 Chest pain, unspecified; Z87.442 Personal history of urinary calculi; R33.9 Retention of urine, unspecified; M25.50 Pain in unspecified joint; N18.3 Chronic kidney disease, stage 3 (moderate); Z85.038 Personal history of other malignant neoplasm of large intestine; Z93.3 Colostomy status

== ENCOUNTER → 2018-08-28 | Outpatient (REF) | payer MEDICARE, MEDICAID | LOC: M SMT 17:52 | DX: N49.2 Inflammatory disorders of scrotum (principal) | CPT/HCPCS: 87205 ==

== ENCOUNTER 2018-09-14 05:47 | Inpatient (IN) | payer MEDICARE, MEDICAID ==
[2018-09-14 06:56] LABS: HEMATOCRIT 26.9 % (42.0-52.0); MEAN CORPUSCULAR HEMOGLOBIN 31.4 pg (27.0-33.0); MEAN CORPUSCULAR HGB CONC 33.5 g/dl (32.0-36.5); MEAN CORPUSCULAR VOLUME 93.7 fl (80.0-96.0); RED BLOOD COUNT 2.87 10^6/uL (4.30-6.10); RED CELL DISTRIBUTION WIDTH 17.5 % (11.5-14.5); WHITE BLOOD COUNT 4.5 10^3/uL (4.0-10.0)
[2018-09-14] MEDS: MORPHINE 4 MG/ML 1ML VIAL/SYRINGE (J2270) IV ×3 (06:57→15:39)
[2018-09-14] MEDS: NS 1,000 ML IV (06:58)
[2018-09-14] MEDS: NICOTINE 21MG/24HR 1 EA TRANSDERMAL TD ×2 (06:58→09:42)
[2018-09-14 07:06] LABS: ADD MANUAL DIFFER YES; DIFF SLIDE NUMBER 89; PLATELET COUNT, AUTOMATED 8 10^3/uL (150-450); POS COUNT POS FLAG; POSITIVE MORPH POS FLAG; SUSPECT SAMPLE POS FLAG
[2018-09-14 07:07] LABS: IMMATURE PLATELET FRACTION % 3.7 % (0.0-10.9); PLATELET F 0.3
[2018-09-14 07:10] LABS: INR 1.14; PROTHROMBIN TIME 14.7 SECONDS (12.1-14.4)
[2018-09-14 07:11] LABS: PARTIAL THROMBOPLASTIN TIME 41.3 SECONDS (25.4-37.6)
[2018-09-14 07:19] LABS: ANION GAP 10 MEQ/L (8-16); BLOOD UREA NITROGEN 24 MG/DL (7-18); CALCIUM LEVEL 9.1 MG/DL (8.5-10.1); CARBON DIOXIDE LEVEL 16 MEQ/L (21-32); CHLORIDE LEVEL 110 MEQ/L (98-107); CREATININE FOR GFR 1.54 MG/DL (0.70-1.30); GLOMERULAR FILTRATION RATE 52.5 (>60); GLUCOSE, FASTING 103 MG/DL (70-100); POTASSIUM SERUM 3.8 MEQ/L (3.5-5.1); SODIUM LEVEL 136 MEQ/L (136-145)
[2018-09-14] MEDS: ONDANSETRON 4MG/2ML VIAL (J2405) IV (07:44)
[2018-09-14 08:21] LABS: TYPE AND SCREEN 1 1
[2018-09-14 08:40] LABS: BANDS 11 % (< 11); BLAST CELLS 1 % (0-0); EOSINOPHILS 1 % (0-5); LYMPHOCYTES 57 % (16-52); METAMYELOCYTES 3 % (0-0); MONOCYTES 4 % (0-8); MYELOCYTES 6 % (0-0); NEUTROPHILS 17 % (35-75)
[2018-09-14 08:42] LABS: PLATELET ESTIMATE MARKED DECREASE (NORMAL)
[2018-09-14] MEDS: OMEPRAZOLE 20 MG CAP PO (09:41)
[2018-09-14] MEDS: TAMSULOSIN 0.4 MG CAP PO (09:42)
[2018-09-14] MEDS: PERCOCET 5MG/325MG TAB PO ×3 (09:42→22:49)
[2018-09-14] MEDS: AUGMENTIN 875 MG TAB PO ×2 (11:13→20:19)
[2018-09-14] MEDS: SPIRONOLACTONE 12.5MG PER 1/2 TABLET PO (11:13)
[2018-09-14] MEDS: ACETAMINOPHEN 500 MG TAB PO ×2 (12:11→20:19)
[2018-09-14 15:14] LABS: PLTBLUE- EDTA FREE CALC 21 K/mm3 (172-450)
[2018-09-14 15:15] LABS: PLTBLUE- EDTA FREE MACHINE 19 10^3/uL (172-450)
[2018-09-14] MEDS ORDERED: PERCOCET 5MG/325MG TAB PO (15:45)
[2018-09-14 16:57] LABS: IMMEDIATE SPIN CROSSMATCH 1
[2018-09-15] MEDS: PERCOCET 5MG/325MG TAB PO ×5 (03:02→22:30)
[2018-09-15 06:28] LABS: HEMATOCRIT 22.2 % (42.0-52.0); HEMOGLOBIN 7.5 g/dl (13.5-17.5); MEAN CORPUSCULAR HGB CONC 33.8 g/dl (32.0-36.5); MEAN CORPUSCULAR VOLUME 91.7 fl (80.0-96.0); RED BLOOD COUNT 2.42 10^6/uL (4.30-6.10); RED CELL DISTRIBUTION WIDTH 17.5 % (11.5-14.5); WHITE BLOOD COUNT 3.3 10^3/uL (4.0-10.0)
[2018-09-15 06:38] LABS: PLATELET COUNT, AUTOMATED 24 10^3/uL (150-450); POS COUNT POS FLAG
[2018-09-15 06:56] LABS: ANION GAP 11 MEQ/L (8-16); BLOOD UREA NITROGEN 20 MG/DL (7-18); CALCIUM LEVEL 9.1 MG/DL (8.5-10.1); CARBON DIOXIDE LEVEL 17 MEQ/L (21-32); CHLORIDE LEVEL 108 MEQ/L (98-107); CREATININE FOR GFR 1.47 MG/DL (0.70-1.30); GLOMERULAR FILTRATION RATE 55.4 (>60); GLUCOSE, FASTING 127 MG/DL (70-100); POTASSIUM SERUM 3.3 MEQ/L (3.5-5.1); SODIUM LEVEL 136 MEQ/L (136-145)
[2018-09-15 07:00] LABS: PLTBLUE- EDTA FREE CALC 24 K/mm3 (172-450)
[2018-09-15 07:01] LABS: PLTBLUE- EDTA FREE MACHINE 22 10^3/uL (172-450)
[2018-09-15] MEDS: TAMSULOSIN 0.4 MG CAP PO (07:48)
[2018-09-15] MEDS: OMEPRAZOLE 20 MG CAP PO (07:48)
[2018-09-15] MEDS: AUGMENTIN 875 MG TAB PO ×2 (07:48→20:16)
[2018-09-15] MEDS: SPIRONOLACTONE 12.5MG PER 1/2 TABLET PO (07:48)
[2018-09-15] MEDS: NICOTINE 21MG/24HR 1 EA TRANSDERMAL TD (07:49)
[2018-09-15] MEDS: DOCUSATE SODIUM 100 MG CAP PO ×2 (10:45→20:17)
[2018-09-15] MEDS: SENNA 8.6 MG TAB (SENOKOT) PO ×2 (10:45→20:17)
[2018-09-15] MEDS: ACETAMINOPHEN 500 MG TAB PO ×2 (10:50→20:17)
[2018-09-15] MEDS: ONDANSETRON 4 MG TAB (S0181) PO (16:47)
[2018-09-16] MEDS: PERCOCET 5MG/325MG TAB PO ×5 (02:33→23:52)
[2018-09-16] MEDS: ACETAMINOPHEN 500 MG TAB PO ×2 (05:43→14:06)
[2018-09-16 05:57] LABS: HEMATOCRIT 22.9 % (42.0-52.0); HEMOGLOBIN 7.7 g/dl (13.5-17.5); MEAN CORPUSCULAR HEMOGLOBIN 31.4 pg (27.0-33.0); MEAN CORPUSCULAR HGB CONC 33.6 g/dl (32.0-36.5); MEAN CORPUSCULAR VOLUME 93.5 fl (80.0-96.0); RED BLOOD COUNT 2.45 10^6/uL (4.30-6.10); RED CELL DISTRIBUTION WIDTH 17.4 % (11.5-14.5); WHITE BLOOD COUNT 4.2 10^3/uL (4.0-10.0)
[2018-09-16 06:05] LABS: IMMATURE PLATELET FRACTION % 1.5 % (0.0-10.9); PLATELET COUNT, AUTOMATED 23 10^3/uL (150-450); PLATELET F 0.3; POS COUNT POS FLAG
[2018-09-16 06:27] LABS: ANION GAP 9 MEQ/L (8-16); BLOOD UREA NITROGEN 19 MG/DL (7-18); CALCIUM LEVEL 9.1 MG/DL (8.5-10.1); CARBON DIOXIDE LEVEL 19 MEQ/L (21-32); CHLORIDE LEVEL 107 MEQ/L (98-107); CREATININE FOR GFR 1.31 MG/DL (0.70-1.30); GLOMERULAR FILTRATION RATE > 60.0 (>60); GLUCOSE, FASTING 100 MG/DL (70-100); POTASSIUM SERUM 3.4 MEQ/L (3.5-5.1); SODIUM LEVEL 135 MEQ/L (136-145)
[2018-09-16] MEDS: TAMSULOSIN 0.4 MG CAP PO (07:42)
[2018-09-16] MEDS: AUGMENTIN 875 MG TAB PO ×2 (07:43→20:22)
[2018-09-16] MEDS: OMEPRAZOLE 20 MG CAP PO (07:43)
[2018-09-16] MEDS: SPIRONOLACTONE 12.5MG PER 1/2 TABLET PO (07:43)
[2018-09-16] MEDS: DOCUSATE SODIUM 100 MG CAP PO ×2 (07:44→20:22)
[2018-09-16] MEDS: NICOTINE 21MG/24HR 1 EA TRANSDERMAL TD (07:44)
[2018-09-16] MEDS: SENNA 8.6 MG TAB (SENOKOT) PO ×2 (07:44→20:23)
[2018-09-17 06:13] LABS: HEMATOCRIT 25.2 % (42.0-52.0); HEMOGLOBIN 8.1 g/dl (13.5-17.5); MEAN CORPUSCULAR HEMOGLOBIN 30.7 pg (27.0-33.0); MEAN CORPUSCULAR HGB CONC 32.1 g/dl (32.0-36.5); MEAN CORPUSCULAR VOLUME 95.5 fl (80.0-96.0); RED BLOOD COUNT 2.64 10^6/uL (4.30-6.10); RED CELL DISTRIBUTION WIDTH 17.3 % (11.5-14.5)
[2018-09-17 06:33] LABS: ANION GAP 10 MEQ/L (8-16); BLOOD UREA NITROGEN 19 MG/DL (7-18); CALCIUM LEVEL 9.2 MG/DL (8.5-10.1); CARBON DIOXIDE LEVEL 19 MEQ/L (21-32); CHLORIDE LEVEL 104 MEQ/L (98-107); CREATININE FOR GFR 1.44 MG/DL (0.70-1.30); GLOMERULAR FILTRATION RATE 56.7 (>60); GLUCOSE, FASTING 112 MG/DL (70-100); POTASSIUM SERUM 3.7 MEQ/L (3.5-5.1); SODIUM LEVEL 133 MEQ/L (136-145)
[2018-09-17 06:35] LABS: PLATELET COUNT, AUTOMATED 16 10^3/uL (150-450); POS COUNT POS FLAG
[2018-09-17 06:36] LABS: IMMATURE PLATELET FRACTION % 2.5 % (0.0-10.9)
[2018-09-17] MEDS: TAMSULOSIN 0.4 MG CAP PO (08:42)
[2018-09-17] MEDS: AUGMENTIN 875 MG TAB PO (08:43)
[2018-09-17] MEDS: OMEPRAZOLE 20 MG CAP PO (08:44)
[2018-09-17] MEDS: NICOTINE 21MG/24HR 1 EA TRANSDERMAL TD (08:45)
[2018-09-17] MEDS: SENNA 8.6 MG TAB (SENOKOT) PO (08:46)
[2018-09-17] MEDS: SPIRONOLACTONE 12.5MG PER 1/2 TABLET PO (08:46)
[2018-09-17] MEDS: DOCUSATE SODIUM 100 MG CAP PO (08:46)
[2018-09-17] MEDS: PERCOCET 5MG/325MG TAB PO ×2 (08:47→13:52)
== END 2018-09-17 15:54 | disposition home or self-care (01) | DRG 813 ==
LOC: M ED 05:47 → M ED INP 07:51 → M MS4PR 09:29 → M MSPAV 15:25
PROC: 30233N1 Transfusion of Nonautologous Red Blood Cells into Peripheral Vein, Percutaneous Approach (ICD-10-PCS; principal; 2018-09-14)
PROC: 30233R1 Transfusion of Nonautologous Platelets into Peripheral Vein, Percutaneous Approach (ICD-10-PCS; 2018-09-14)
DX: D69.6 Thrombocytopenia, unspecified (principal); C92.00 Acute myeloblastic leukemia, not having achieved remission; D61.818 Other pancytopenia; R04.0 Epistaxis; F17.200 Nicotine dependence, unspecified, uncomplicated; K21.9 Gastro-esophageal reflux disease without esophagitis; I12.9 Hypertensive chronic kidney disease with stage 1 through stage 4 chronic kidney disease, or unspecified chronic kidney disease; M54.5 Low back pain; R10.9 Unspecified abdominal pain; Z86.718 Personal history of other venous thrombosis and embolism; N18.9 Chronic kidney disease, unspecified; Z79.899 Other long term (current) drug therapy; Z91.018 Allergy to other foods; N40.0 Benign prostatic hyperplasia without lower urinary tract symptoms

== ENCOUNTER 2018-10-03 17:30 | Inpatient (IN) | payer MEDICARE, MEDICAID ==
[~2018-10-03] VITALS: Ht 170.2 cm; Wt 71.6 kg
[2018-10-03] MEDS: NICOTINE 21MG/24HR 1 EA TRANSDERMAL TD SCH (09:00)
[~2018-10-03 17:30] MED LIST changes: -ONDA4SOL PO; -[UNRECOGNIZED DRUG - CODE] PO; -[UNRECOGNIZED DRUG - CODE] PO
[2018-10-03] MEDS ORDERED: VANCOMYCIN HCL 1,000 MG, VIAL MATE ADAPTER 1 EACH in D5W 250 ML IV SCH (19:00)
[2018-10-03] MEDS ORDERED: ONDANSETRON 4MG/2ML VIAL (J2405) IV PRN (19:00)
[2018-10-03] MEDS ORDERED: [UNRECOGNIZED DRUG - CODE] PO (19:09)
[2018-10-03] MEDS ORDERED: [UNRECOGNIZED DRUG - CODE] PO (19:09)
[2018-10-03] MEDS ORDERED: ONDA4SOL PO (19:10)
[2018-10-03] MEDS ORDERED: ONDA4TAB5 PO (19:11)
[2018-10-03] MEDS ORDERED: cefTRIAXone SOD 2 GM in D5W MINI-BAG PLUS 50 ML IV ONE (19:15)
--- NOTE | 2018-10-03 20:08 | HPE ---
DATE OF ADMISSION: 10/03/2018 PRIMARY CARE PROVIDER: Jaquelin Cardona. ONCOLOGIST: Beronica Slater. CHIEF COMPLAINT: Anemia and generalized weakness. 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 Patient required intermittent transfusions. Was evaluated by [facility] where bone marrow biopsy was done. Currently patient is under treatment with Vidaza. The patient developed diffuse arthralgia after Vidaza. Patient also was recently treated for scrotal infection followed by urologist. Earlier today patient was evaluated by urologist where a scrotal abscess that hast ruptured, started on oral antibiotics. Patient reported recent sinus headaches. No other source of bleeding. Dr. Slater from hematology oncology sent the patient in. Initially she was hoping to send the patient into infusion unit for transfusion but unfortunately there is no available spot. Subsequently Dr. Slater wanted to the patient to be admitted for transfusion and recommend transfusion of 3-4 units of PRBCs for hemoglobin about 8 and 1-2 units of platelets. Otherwise patient has no other complaint. Patient has chronic deformity on the right upper extremity and also has blindness in the left eye. Has a colostomy bag. Denies any chest pain. Reported intermittent arthralgia of lower extremity and back that has been chronic. Patient is a currently smoker. Has quite about a month ago. Is currently on Nicotine patch. PAST MEDICAL HISTORY: Colorectal cancer. Myelodysplastic syndrome. 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 Related kidney stone. Blindness in the left eye. Deep vein thrombosis bilateral with IVC filters. PAST SURGICAL HISTORY: Tonsillectomy. Adenoidectomy. IVC filter placement. Colon resection times two with also small intestine resection scaring due to radiation. Bone marrow biopsy. Patient had right hand surgery and left ear surgery in the past. FAMILY HISTORY: Father with lung cancer. SOCIAL HISTORY: Patient quit smoking about a month ago. Is currently on nicotine patch Stage 1 21 mg. Denies any drug or alcohol. Currently but does report a problem with transportation for follow up. As per oncologist patient has difficulty following up because of transportation. ALLERGIES: Include apple, corn-related products, grass, pollen. REVIEW OF SYSTEMS: Diffuse myalgia. Nasal congestion. Generalized weakness. All other systems negative. HOME MEDICATION: - acetaminophen 1000 mg by mouth every 6 hours as needed - Lasix 40 mg by mouth daily as needed - Nicotine patch 21 mg daily - omeprazole 40 mg by mouth daily - Zofran 4 mg by mouth every 6 hours as needed - Percocet 5/325 mg daily by mouth every 6 hours as needed - spironolactone 12.45 mg by mouth daily - Flomax 0.4 mg by mouth daily PHYSICAL EXAMINATION: Vital signs; temperature 97.1, pulse 113, respiratory 16, blood pressure 121/62, pulse ox 100% on room air. GENERAL: Patient alert and comfortable in no acute distress. HEENT: Left eye with blurry lenses. PULMONARY: Bilaterally clear. CARDIAC: Regular S1, S2. ABDOMEN: Colostomy bag in place. Non-tender, non-distended. SCROTAL: With serous drainage. Non swelling. Mild erythema. Patient has been improving. EXTREMITIES: Venous stasis skin changes. DP/PT pulses intact. LABORATORY DATA: WBC 7.1, hematocrit and hemoglobin 5.1/16.4. Platelets less than 9. Chemistry; Sodium 127, potassium 3.6, chloride 103, bicarbonate 12, BUN 18, creatinine 1.6. 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 PROBLEMS: 1. Anemia and thrombocytopenia secondary to myelodysplastic syndrome. Case discussed with Dr. Slater wanting the patient to be transfused with 2-3 units of PRBCs with a goal hemoglobin above 8 and 1-2 units of platelets and will monitor CBC with differentials. 2. Hyponatremia. Likely hypovolemic hyponatremia. Holding diuretics and holding spironolactone. Follow up urine studies. Follow up repeat basic metabolic panel. Transfusion is ordered. 4. Scrotal cellulitis. Will resume oral medication at home once after discharge but will start patient on vancomycin and Rocephin. Patient also reported sinusitis and patient also likely immunocompromised so we will treat the patient with Rocephin and vancomycin until patient is discharged. We will add blood cultures. 5. History of deep vein thrombosis. Patient has IVC filters. 6. Smoking. Nicotine patch, Counseling provided. 7. Deep vein thrombosis prophylaxis. Patient has IVC filters. Thromboembolic deterrent stockings (TEDS) and sequentials. Hold pharmacologic agents given patient's thrombocytopenia. DISPOSITION: Follow up CBCs and likely discharge in the next 24-48 hours. Case discussed with Dr. Slater. Outpatient follow up with urology for scrotal cellulitis.
[2018-10-03] MEDS: PERCOCET 5MG/325MG TAB PO PRN (20:09)
[2018-10-03] MEDS: SENOKOT S TAB PO SCH (21:00)
[2018-10-03] MEDS: ACETAMINOPHEN TAB 650MG DOSE (2X325MG) PO PRN (21:01)
[2018-10-03 21:33] VITALS: BP 142/82
--- NOTE | 2018-10-03 21:45 | PHACANCOPD ---
PHARMACY VANCOMYCIN DOSING Pt Demographics Demographics Patient Age:42 , Weight:71.600 , Gender: male Adjusted Body Weight Date: 10/03/18, Adjusted Body Weight: [77.7] Kg Events Past 24 Hours Events Past 24 Hours: NO: Dialysis, Diuretic Therapy, Change in CrCl, Fever, Elevation in WBC, Pending Diagnostics, Pending Procedures, Other Vancomycin Vancomycin indication: SCROTAL ABSCESS Vancomycin Target Ranges: 15-20 mcg/ml Vancomycin Load Y/N: Yes Load Dose Date Time Vancomycin Load Dose: 1.5G Date: 10/03/18 Time: 23:00 Vancomycin Dose Date: 10/03/18. Current Vancomycin Dose: [750MG IV Q12H] Intermittent Dosing?: No Labs Creatinine Clearance Date:10/03/18. Creatinine Clearance: [54ML/MIN]. Pending Labs VANCOMYCIN TROUGH 10/05/18 @1000 Assessment and Plan Maintaining Current Dose?: Yes Reason for dose change: No Dose Change Pharmacist Note Pharmacist Note Date: 10/03/18. Pharmacist note: PT is a 42 year old male being treated for a scrotal abscess goal trough 15-20mcg/ml. The patient was last treated here at [facility] with vancomycin in August 2018. That therapy will help guide current treatment. To achieve goal a 1.5g loading dose is scheduled 10/03/18 @23:00. Maintenance therapy will consist of 750mg IV every 12 hours starting 10/04/18 @ 11:00. A trough is scheduled for 10/05/18 @10:00. We will continue to monitor and adjust the dose as needed. EDGARD NOVOA [facility]ARMAC[facility] Oct 03, 2018 21:45
[2018-10-03 21:50] VITALS: BP 132/84
[2018-10-03 22:20] VITALS: BP 138/74
[2018-10-03] MEDS: cefTRIAXone SOD 2 GM in D5W MINI-BAG PLUS 50 ML IV SCH (22:45)
[2018-10-03] MEDS: MORPHINE 4 MG/ML 1ML VIAL/SYRINGE (J2270) IV PRN (22:46)
[2018-10-03] MEDS ORDERED: VANCOMYCIN HCL 750 MG, VIAL MATE ADAPTER 1 EACH in D5W 250 ML IV SCH (23:00)
[2018-10-03 23:07] LABS: CALCIUM LEVEL 8.5 MG/DL (8.5-10.1); CREATININE FOR GFR 1.57 MG/DL (0.70-1.30); GLOMERULAR FILTRATION RATE 51.3 (>60); POTASSIUM SERUM 3.9 MEQ/L (3.5-5.1)
[2018-10-04] VITALS (21 sets, daily range): BP systolic 117–153; BP diastolic 58–88
[2018-10-04] MEDS: PERCOCET 5MG/325MG TAB PO PRN ×3 (01:36→12:55)
[2018-10-04] MEDS: MORPHINE 4 MG/ML 1ML VIAL/SYRINGE (J2270) IV PRN ×2 (04:39→10:12)
[2018-10-04] MEDS: ACETAMINOPHEN TAB 650MG DOSE (2X325MG) PO PRN ×2 (05:26→17:21)
[2018-10-04] MEDS: VANCOMYCIN HCL 750 MG, VIAL MATE ADAPTER 1 EACH in D5W 250 ML IV SCH ×2 (06:33→18:05)
[2018-10-04] MEDS: SENOKOT S TAB PO SCH ×2 (07:50→21:03)
[2018-10-04] MEDS: NICOTINE 21MG/24HR 1 EA TRANSDERMAL TD SCH (07:52)
[2018-10-04] MEDS ORDERED: VANCOMYCIN HCL 750 MG, VIAL MATE ADAPTER 1 EACH in D5W 250 ML IV ONE ×4 (08:00)
[2018-10-04] MEDS ORDERED: TAMSULOSIN 0.4 MG CAP PO SCH (09:00)
[2018-10-04] MEDS ORDERED: OMEPRAZOLE 20 MG CAP PO SCH (09:00)
[2018-10-04] MEDS ORDERED: SPIRONOLACTONE 25 MG TAB PO SCH (09:00)
[2018-10-04 09:02] LABS: POTASSIUM RANDOM URINE 14.5 MEQ/L; TOTAL PROTEIN,RANDOM URINE 68.5 MG/DL (0.0-12.0); URIC ACID,RANDOM URINE 33.1 MG/DL
[2018-10-04 09:38] LABS: HEMATOCRIT 29.1 % (42.0-52.0); HEMOGLOBIN 10.3 g/dl (13.5-17.5); MEAN CORPUSCULAR HGB CONC 35.4 g/dl (32.0-36.5); MEAN CORPUSCULAR VOLUME 87.7 fl (80.0-96.0); RED BLOOD COUNT 3.32 10^6/uL (4.30-6.10); WHITE BLOOD COUNT 8.1 10^3/uL (4.0-10.0)
[2018-10-04 09:49] LABS: INR 1.27; PROTHROMBIN TIME 16.1 SECONDS (12.1-14.4)
[2018-10-04 10:11] LABS: ALT/SGPT 16 U/L (12-78); BILIRUBIN,TOTAL 0.7 MG/DL (0.2-1.0); BLOOD UREA NITROGEN 17 MG/DL (7-18); CALCIUM LEVEL 7.9 MG/DL (8.5-10.1); CARBON DIOXIDE LEVEL 14 MEQ/L (21-32); CHLORIDE LEVEL 103 MEQ/L (98-107); CREATININE FOR GFR 1.37 MG/DL (0.70-1.30); GLOMERULAR FILTRATION RATE > 60.0 (>60); GLUCOSE, FASTING 98 MG/DL (70-100); MAGNESIUM LEVEL 1.5 MG/DL (1.8-2.4); POTASSIUM SERUM 3.6 MEQ/L (3.5-5.1); SODIUM LEVEL 130 MEQ/L (136-145); TOTAL PROTEIN 6.3 GM/DL (6.4-8.2)
[2018-10-04 10:23] LABS: PLATELET COUNT, AUTOMATED 8 10^3/uL (150-450)
[2018-10-04] MEDS ORDERED: MAG SULF 1GM/100ML (MAG RUN) 1 GM in APPROPRIATE DILUENT 1 EA IV ONE (10:45)
[2018-10-04 10:47] LABS: BASOPHILS 1 % (0-4); EOSINOPHILS 1 % (0-5); LYMPHOCYTES 16 % (16-52); METAMYELOCYTES 2 % (0-0); MONOCYTES 2 % (0-8); MYELOCYTES 3 % (0-0); NEUTROPHILS 25 % (35-75)
[2018-10-04 10:51] LABS: BLAST CELLS 46 % (0-0); PLATELET ESTIMATE MARKED DECREASE (NORMAL); TOXIC VACUOLATION 3+
[2018-10-04] MEDS ORDERED: PERCOCET 5MG/325MG TAB PO PRN (13:30)
[2018-10-04] MEDS ORDERED: POTASSIUM CHLORIDE 10 MEQ SR TABLET PO ONE (14:00)
[2018-10-04] MEDS ORDERED: SLF 3 ML SYR IV PRN (15:30)
[2018-10-04 18:13] LABS: HEMATOCRIT 27.7 % (42.0-52.0); HEMOGLOBIN 9.8 g/dl (13.5-17.5); MEAN CORPUSCULAR HEMOGLOBIN 30.9 pg (27.0-33.0); MEAN CORPUSCULAR HGB CONC 35.4 g/dl (32.0-36.5); MEAN CORPUSCULAR VOLUME 87.4 fl (80.0-96.0); RED BLOOD COUNT 3.17 10^6/uL (4.30-6.10); WHITE BLOOD COUNT 7.3 10^3/uL (4.0-10.0)
[2018-10-04 18:18] LABS: PLATELET COUNT, AUTOMATED 12 10^3/uL (150-450)
--- NOTE | 2018-10-04 20:46 | DSES ---
DATE OF ADMISSION: 10/03/2018 DATE OF DISCHARGE: 10/04/2018 Discharge pending bed availability at [facility]. PRIMARY CARE PROVIDER: Jaquelin Cardona ONCOLOGIST: Dr. Beronica Slater CHIEF COMPLAINT: Generalized weakness and anemia and thrombocytopenia. 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 Patient was evaluated at [facility] before with bone marrow biopsy, currently patient was treated with Vidaza and was complicated with diffuse arthralgia. Patient also was recently treated with scrotal infection cellulitis by urologist. Earlier on October 03 patient was evaluated by urologist for scrotal abscess that has ruptured started on oral antibiotics. Also reported sinus headache. There is no other source of bleeding. Patient. There is no other source of bleeding. Patient has also seen hematology and oncology Dr. Slater and was initially was found to be critically anemia and thrombocytopenia. Initially saw the patient for infusion and therefore transfusion. Unfortunately no spot is available subsequently patient was admitted for transfusion and recommended transfusing 2-4 units of packed red blood cells with a goal hemoglobin of above 8 with 1-2 units of platelets. Otherwise patient has no other complaints and has chronic deformity on the right upper extremities and also has and has a colostomy bag. He denies any chest pain, reported arthralgia of the lower extremity and back that has been chronic. He is a former smoker. He quit about a month ago. He is currently on Nicotine patch. HOSPITAL COURSE: Patient was admitted, evaluated by oncologist who informed the patient that it was transforming into acute myeloblastic and recommended transferring the patient to [facility] subsequently [facility] transfer center was called but given that there is no bed availability patient is wait listed. Case discussed with Dr. Slater who is comfortable keeping the patient one more night. If there is no bed available Dr. Slater recommended pursuing alternative. The patient is already established at [facility] and Dr. Slater would prefer the patient have continuity of care to followup at [facility]. Subsequently currently patient is still admitted in PCU waiting for a bed. Patient was transfused a total of 4 units of packed red blood cells and two units of platelets. Will monitor CBC. Patient's hyponatremia also resolved with volume resuscitation with blood. Patient was also stared on broad spectrum antibiotics while inpatient. Given patient is supposed to be oral antibiotics for scrotal cellulitis. PHYSICAL EXAMINATION: VITAL SIGNS: Temperature 100.5, pulse 121, respirations 18, blood pressure 136/60, pulse ox 100% on room air. LABORATORY: WBC 7.3, hemoglobin and hemoglobin 9.8 over 29.7, platelets 12. Chemistry: Sodium 130, potassium 3.6, chloride 103, bicarbonate 14, BUN 17, anion gap 13, creatinine 1.37, magnesium 1.5 GENERAL: Patient is alert, comfortable and pale. HEENT: Left eye blurry lenses. PULMONARY: Bilateral clear. CARDIAC: Regular and tachycardia. ABDOMEN: Colostomy bag in place, nontender. Nondistended. Positive bowel sounds. SCROTAL: With serous drainage that is minimal. No swelling. Minimal erythema. As per the patient has been much improved. Bilateral lower extremity venous stasis. ASSESSMENT AND PLAN: This is a 42-year-old male patient with underlying medical history of colon cancer with multiple colectomies, small intestinal resection 1999 and 2010. 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 Has an IVC filter treated by urologist for scrotal cellulitis and seen by oncologist initially for transfusion for anemia and thrombocytopenia but was found to be acute myeloblastic leukemia, currently waiting for transfer. PROBLEMS: 1. Anemia thrombocytopenia. Patient received four units of packed red blood cells and 2 units of platelets. Followup CBC. Further recommendation as per Dr. Slater. Currently waiting for transfer. Likely secondary to myeloplastic leukemia. Patient will need to be transferred. 2. Hyponatremia resolved. Likely hypovolemic and hyponatremia resolved with volume resuscitation. Holding spironolactone and holding Lasix. 3. Scrotal cellulitis. Patient was supposed to be on oral antibiotics according to urologist. We will place patient on Rocephin and Vancomycin, followup cultures. Resume oral antibiotics upon discharge. 4. History of deep venous thrombosis. Patient has an IVC filter. 5. Smoking. Nicotine patch. Counseling provided. 6. Deep venous thrombosis prophylaxis. Patient has IVC filters. Avoid anticoagulation given severe thrombocytopenia. DISPOSITION: Pending transfer to a tertiary care. CURRENT INPATIENT MEDICATON: Rocephin 2 mg IV daily, vancomycin 750 mg IV twice a day, acetomorphine 650 mg by mouth every 4 hours as needed, Senokot S 1 tablet by mouth twice a day, Nicotine patch 25 mg transdermal daily, Protonix 40 mg by mouth daily, Zofran 4 mg IV every 6 hours as needed. Percocet 1-2 tablets by mouth every 4 hours as needed, potassium chloride supplementation, Flomax 0.4 mg by mouth daily. DISCHARGE INSTRUCTION: Please followup with hematology oncology. Please see oncology at [facility] for acute myeloplastic leukemia. Please see urologist for scrotal cellulitis and followup with his primary care provider and patient's oncologist in 7 days after discharge. Further care as per medical team at [facility].
[2018-10-04] MEDS: cefTRIAXone SOD 2 GM in D5W MINI-BAG PLUS 50 ML IV SCH (21:03)
[2018-10-04] MEDS ORDERED: SLF 3 ML SYR IV SCH (22:00)
--- NOTE | 2018-10-05 14:03 | CR ---
DATE OF CONSULTATION: 10/04/2018 REASON FOR CONSULTATION: Severe profound anemia. HISTORY OF PRESENT ILLNESS: This is a very pleasant young gentleman who has a history of treatment related myelodysplastic syndrome that had resulted from initially been treated with 5-FU chemotherapy when he was in his 20s. The patient had a history of colorectal carcinoma and underwent adjuvant medical therapy and chemotherapy approximately 18 years ago. He had no problems with the chemotherapy at that time and has had no recurrence of colorectal carcinoma. Unfortunately the myelodysplastic syndrome from the 5-FU. He had an APR resection due to a rectal mass and had been treated with chemo. He had a stage III colorectal carcinoma. He had been noted to have an infiltrating well to moderately differentiated adenocarcinoma at that time. He has a permanent end colostomy. During the course of his treatment the patient had developed bilateral lower extremity deep venous thrombosis (DVT) and was started on Xarelto and had been advised that this was lifelong. He also suffered resections of small bowel due to lysis of adhesions and partial left eye blindness. He has suffered a bilateral DVT for times since his diagnosis in 1999. He was seen at [facility] when he had presented with pancytopenia and a bone marrow biopsy was done there. They were concerned that the patient was developing a transformation from MDS that was treatment related to an AML due to the presence of about five to seven blasts. He has then been seen in the community and been followed, however, has suffered several admissions due to not only anemia but infection requiring intravenous antibiotic therapy as well a scrotal abscess that required Incision and drainage (I D) and had delayed healing. The patient had presented to the clinic on 10/04/2018 and was found to be profoundly anemic with a hemoglobin of 5.1. The CBC machine in the outpatient clinic does not do differentials and a request for a blast count was done. This had returned today with a blast count of 44%. PAST MEDICAL HISTORY: Is as above noted in the history of present illness (HPI). MEDICATIONS: Included: Bactrim by mouth twice a day as per his primary care physician for urinary tract infection (UTI), Lasix 40 mg by mouth daily, omeprazole 40 mg daily, ondansetron 8 mg by mouth as needed and a Percocet 5/325 one tablet by mouth every 6 hours as needed. REVIEW OF SYSTEMS: He denies any bleeding, but is markedly tired, fatigued, possibly with muscle aches. He is unable to sleep, states that he needs to take the Percocet because his legs appear to be getting more and more swollen. He has had no sign of any discharge or exudate coming from the scrotal area since his infection. He is able to urinate but does require catheterization. Colostomy has been functioning without any blood and his sleep has been disturbed. Generally he feels as if he has to spend a couple of times during the day taking a rest. PHYSICAL EXAMINATION: Vitals are per RN sheet. The patient shows extreme pallor. Sclerae is otherwise nonicteric. Oropharynx is without any lesions or sores or ulcerations. Neck is supple. Chest is decreased breath sounds at the bases but no rales, rhonchi or wheezes. Cardiovascular: The patient has a systolic ejection flow murmur. Abdomen is otherwise soft, nontender. Colostomy is intact. No signs of any surrounding irritation around the ostomy. Extremities: The patient has bilateral lower leg edema 4+ pitting. Neurological examination is intact with slight decreased sensation in the fingertips and toes. LABORATORY RESULTS: The patient had a WBC count of 7.7, hemoglobin of 5.1, hematocrit of 16.4, RDW of 14.3 and platelets of 9000. He had 25% neutrophils and 44% blasts, that was all pretransfusion. Post transfusion his WBC count was 7.3, hemoglobin 9.8 over 27.7, RDW of 15.6 and a platelet count of 12,000 and blast count was 46% with myelocytes, 3% in metamyelocytes 2. IMPRESSION: 1. 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 2. Intolerance to Vidaza therapy due to diffuse and profound arthralgias after only two dose administrations. 3. History of colorectal cancer with no evidenced disease. 4. History of recurrent deep venous thromboses (DVTs). 5. History of urinary tract infections, recurrent. 6. History of sinus infections, current ongoing sinus pressure. 7. Recent scrotal abscess, improved healing post antibiotic therapy. 8. Concern for multiple antibiotic therapies in the face of his acute leukemia for induction. PLAN: Is to have the patient transferred down to [facility] for treatment in the leukemia service. cc: EASTON Manzanares
--- NOTE | 2018-10-06 19:39 | DSES ---
DATE OF ADMISSION: 10/04/2018 DATE OF DISCHARGE: 10/04/2018 ADDENDUM Patient was later called on the night of 10/04/2018 that patient had received a bed at [facility]. Subsequently, patient was transferred to [facility], refer to discharge summary on 10/04/2018 for further information. During the hospital course, patient received a total of 4 units packed red blood cells (PRBC) and 2 units of platelets. Further recommendation and care as per oncology team and urology team at [facility].
== END 2018-10-04 23:41 | disposition short-term general hospital (02) | DRG 835 ==
LOC: M ED 17:30 → M ED INP 18:55 → M PCU 21:10 → INTOOBSV 10-04 13:22 → OBSVTOIN 10-04 13:22
PROVIDERS: ADMIT Hospitalist; ATTEND Hospitalist
PROC: 30233N1 Transfusion of Nonautologous Red Blood Cells into Peripheral Vein, Percutaneous Approach (ICD-10-PCS; principal; 2018-10-04)
PROC: 30233R1 Transfusion of Nonautologous Platelets into Peripheral Vein, Percutaneous Approach (ICD-10-PCS; 2018-10-04)
DX: C92.60 Acute myeloid leukemia with 11q23-abnormality not having achieved remission (principal); E87.1 Hypo-osmolality and hyponatremia; C92.A0 Acute myeloid leukemia with multilineage dysplasia, not having achieved remission; N49.2 Inflammatory disorders of scrotum; D69.6 Thrombocytopenia, unspecified; Z87.891 Personal history of nicotine dependence; Z86.718 Personal history of other venous thrombosis and embolism; Z85.038 Personal history of other malignant neoplasm of large intestine; Z85.048 Personal history of other malignant neoplasm of rectum, rectosigmoid junction, and anus

== ENCOUNTER → 2018-10-03 | Outpatient (REF) | payer MEDICARE, MEDICAID ==
[~2018-10-03] MED LIST changes: +APAP500T10 PO; +AUGM875T28 PO; -DRIS50002 PO; +DRIS50003 PO; +FLOM0.4C39 PO; +IBUPOTC PO; +NICO21DI31 TD; +NICO21DI31 TOP; +OMEP40CA2 PO; +ONDA4SOL PO; +ONDA4TAB5 PO; +OXYC1TAB23 PO; +PROAAER10 INH; +SPIR-10 PO; -SPIR25TA2 PO; +TYLE500T78 PO; +[UNRECOGNIZED DRUG - CODE] PO; +[UNRECOGNIZED DRUG - CODE] PO
[2018-10-03 20:06] LABS: APPEARANCE, URINE CLEAR (CLEAR); BACTERIA, URINE AUTO NEGATIVE (NEGATIVE); BILIRUBIN, URINE AUTO NEGATIVE (NEGATIVE); BLOOD, URINE BLOOD NEGATIVE (NEGATIVE); COLOR, URINE YELLOW (YELLOW); GLUCOSE, URINE (UA) AUTO NEGATIVE (NEGATIVE); KETONE, URINE AUTO NEGATIVE (NEGATIVE); LEUKOCYTE ESTERASE, URINE AUTO NEGATIVE (NEGATIVE); MUCUS, URINE SMALL (NEGATIVE); NITRITE, URINE AUTO NEGATIVE (NEGATIVE); PROTEIN, URINE AUTO NEGATIVE (NEGATIVE); RBC, URINE AUTO 1 /HPF (0-3); SPECIFIC GRAVITY URINE AUTO 1.013 (1.002-1.035); SQUAMOUS EPITHELIAL CELL UR AU 0 /HPF (0-6); UROBILINOGEN, URINE AUTO 0.2 mg/dL (0.0-2.0); WBC, URINE AUTO 2 /HPF (0-3)
== END ==
LOC: M SMT 17:30
PROVIDERS: ATTEND Nurse Practitioner Women's Health
DX: R33.9 Retention of urine, unspecified (principal); N49.2 Inflammatory disorders of scrotum